=== PATIENT | female | born 1950 | race Caucasian/White ===

== ENCOUNTER 2019-04-30 22:44 | Emergency (ER) | payer BC, OTHER ==
[2019-04-30] MEDS: HYDROCODONE/APAP (5/325) TAB PO (23:34)
== END 2019-05-01 02:03 | disposition home or self-care (01) ==
LOC: FTE 05-01 02:03
DX: S00.83XA Contusion of other part of head, initial encounter (principal); W01.198A Fall on same level from slipping, tripping and stumbling with subsequent striking against other object, initial encounter; Y92.9 Unspecified place or not applicable
CPT/HCPCS: 70450; 99284-25